=== PATIENT | female | born 1940 | race Caucasian/White ===

== ENCOUNTER 2025-10-14 07:02 | Inpatient (IN) | payer BC, OTHER ==
[~2025-10-14] VITALS: Ht 167.6 cm; Wt 64.7 kg
--- NOTE | 2025-10-14 07:13 | ED.PDOC ---
HPI Comments This is a 85 year old female KRISTA presenting to the ED with chief complaint of near-syncope. EMS reports patient had gotten up out of bed this morning and began to experience a burning pain in her chest along with associated SOB and lightheadedness. EMS relays patient was witnessed by family to have a near- syncopal episode, lowering herself to the ground due to feeling weak. EMS states patient feels much better at this time while en route to the ED. Patient denies any syncope, LOC, dizziness, headache, N/V, or fever. Chief Complaint: Chest Pain Time Seen by MD: 07:11 Primary Care Provider: JOSE MIGUEL Limon Notes: Nurses Notes, Medications, Allergies Allergies: Coded Allergies: NO KNOWN ALLERGIES (Unverified , 04/05/15) Information Source: Patient, Emergency Med Personnel Mode of Arrival: EMS Severity: Moderate Timing: Hours Duration: Since onset Prehospital treatment: None Location: Substernal Radiation: No Radiation Quality: Burning Onset: At Rest Cardiac Risk Factors: Diabetes PE Risk Factors: None History of: None Associated Signs and Symptoms: SOB Past Medical History PAST MEDICAL HISTORY: DM Surgical History: Cholecystectomy, Hysterectomy CUTTER TENDER History: No Pertinent CUTTER TENDER History Family History Family History: Unobtainable Social History Smoker: Non-Smoker Alcohol: Denies ETOH Use Drugs: Denies Drug Use Lives In: Home Constitutional: denies: chills, diaphoresis, fatigue, fever, malaise, sweats, weakness, others EENTM: denies: blurred vision, double vision, ear bleeding, ear discharge, ear drainage, ear pain, ear ringing, eye pain, eye redness, hearing loss, mouth pain, mouth swelling, nasal discharge, nose bleeding, nose congestion, nose pain, photophobia, tearing, throat pain, throat swelling, voice changes, others Respiratory: reports: shortness of breath; denies: cough, hemoptysis, orthopnea, SOB at rest, SOB with excertion, stridor, wheezing, others Cardiovascular: reports: chest pain, lightheadedness; denies: dizzy spells, diaphoresis, Dyspnea on exertion, edema, irregular heart beat, left arm pain, palpitations, PND, syncope, others Gastrointestinal: denies: abdomen distended, abdominal pain, blood streaked bowels, constipated, diarrhea, dysphagia, difficulty swallowing, hematemesis, melena, nausea, poor appetite, poor fluid intake, rectal bleeding, rectal pain, vomiting, others Genitourinary: denies: abnormal vagina bleeding, burning, dyspareunia, dysuria, flank pain, frequency, hematuria, incontinence, pain, , vagina discharge, urgency, others Neurological: denies: dizziness, fainting, headache, left sided numbness, left sided weakness, numbness, paresthesia, pre-existing deficit, right sided numbness, right sided weakness, seizure, speech problems, tingling, tremors, weakness, others Musculoskeletal: denies: back pain, gout, joint pain, joint swelling, muscle pain, muscle stiffness, neck pain, others Integumetry: denies: bruises, change in color, change in hair/nails, dryness, laceration, lesions, lumps, rash, wounds, others Allergic/Immunocompromised: denies: Difficulty Healing, Frequent Infections, Hives, Itching, others Hematologic/Lymphatic: denies: anemia, blood clots, easy bleeding, easy bruising, swollen glands, others Endocrine: denies: excessive hunger, excessive sweating, excessive thirst, excessive urination, flushing, intolerance to cold, intolerance to heat, un explained weight gain, unexplained weight loss, others Psychiatric: denies: anxiety, bipolar disorder, depression, hopeless, panic disorder, schizophrenia, sleepless, suicidal, others All Other Systems: Reviewed and Negative Physical Exam General Appearance: Moderate Distress, Normal HEENT: Normal ENT Inspection, Pharynx Normal, TMs Normal Neck: Full Range of Motion, Non-Tender, Normal, Normal Inspection Respiratory: Chest Non-Tender, Lungs Clear, No Accessory Muscle Use, No Respiratory Distress, Normal Breath Sounds Cardiovascular: No Edema, No JVD, No Murmur, No Gallop, Normal Peripheral Pulse s, Regular Rate/Rhythm Breast Exam: Deferred Gastrointestinal: No Organomegaly, Non Tender, No Pulsatile Mass, Normal Bowel Sounds, Soft Genitalia: Deferred Pelvic: Deferred Rectal: Deferred Extremities: No calf tenderness, Normal capillary refill, Normal inspection, Normal range of motion, Non-tender, No pedal edema Musculoskeletal : Apperance: Normal Neurologic: Alert, network design architect II-XII nml as Tested, No Motor Deficits, Normal Affect, Normal Mood, No Sensory Deficits Cerebellar Function: NOT DONE Reflexes: NOT DONE Skin: Dry, Normal Color, Warm Peripheral Pulses: 3+ Radial (R), 3+ Radial (L) Lymphatic: No Adenopathy Was a procedure done? Was a procedure done?: No CP Differential Dx Differential Diagnosis: A-fib, A-Flutter, Angina, Anxiety / Panic Attack, Atrial Dysrhythmia, Electrolyte Disorder X-Ray, Labs, Meds, VS Vital Signs Date Time Temp Pulse Resp B/P (MAP) Pulse Ox O2 Delivery O2 Flow Rate FiO2 10/14/25 09:37 98.4 87 16 113/68 (83) 95 98.4 10/14/25 09:37 16 16 95 Room Air 10/14/25 07:09 76 10/14/25 07:09 98.3 75 16 125/65 96 98.3 Lab Test 10/14/25 08:28 10/14/25 07:25 Range/Units Troponin I High Sensitivity < 3 L < 3 L </=34 ng/L White Blood Count 13.6 H 4.4-10.8 10^3/uL Red Blood Count 4.44 4.0-5.20 10^6/uL Hemoglobin 13.9 12.2-16.2 g/dL Hematocrit 41.2 36.0-46.0 % Mean Corpuscular Volume 92.8 80.0-100.0 fL Mean Corpuscular Hemoglobin 31.3 28.0-32.0 pg Mean Corpuscular Hemoglobin Concent 33.7 32.0-36.0 g/dL Red Cell Distribution Width 13.2 11.8-14.3 % Platelet Count 265 140-450 10^3/uL Mean Platelet Volume 7.7 6.9-10.8 fL Neutrophils (%) (Auto) 80.3 H 37.0-80.0 % Lymphocytes (%) (Auto) 9.1 L 10.0-50.0 % Monocytes (%) (Auto) 8.8 0.0-12.0 % Eosinophils (%) (Auto) 1.4 0.0-7.0 % Basophils (%) (Auto) 0.4 0.0-2.0 % Neutrophils # (Auto) 10.9 H 1.6-8.6 10 ^3/uL Lymphocytes # (Auto) 1.2 0.4-5.4 10 ^3/uL Monocytes # (Auto) 1.2 0-1.3 10 ^3/uL Eosinophils # (Auto) 0.2 0-0.8 10 ^3/uL Basophils # (Auto) 0.1 0-0.2 10 ^3/uL Nucleated Red Blood Cells 0.0 % Sodium Level 144 136-145 mmol/L Potassium Level 3.9 3.5-5.1 mmol/L Chloride Level 105 98-107 mmol/L Carbon Dioxide Level 28 20-31 mmol/L Anion Gap 11 5-15 Blood Urea Nitrogen 13 9-23 mg/dL Creatinine 0.98 0.550-1.02 mg/dL Glomerular Filtration Rate Calc 57 >90 mL/min BUN/Creatinine Ratio 13.3 10.0-20.0 Serum Glucose 130 H 74-106 mg/dL Calcium Level 9.8 8.7-10.4 mg/dL Total Bilirubin 0.4 0.2-1.0 mg/dL Aspartate Amino Transferase (AST) 22 13-40 U/L Alanine Aminotransferase (ALT) 12 7-40 U/L Alkaline Phosphatase 81 46-116 U/L Total Protein 7.1 5.7-8.2 g/dL Albumin 4.6 3.2-4.8 g/dL Patient alert. States that she is feeling much better. Possible near-syncope. Vitals stable. Answering questions. Moving all extremities. Cardiac workup. Neurology workup. EKG reviewed does not show any acute changes. Continue monitoring. Time of 1ST Reevaluation: 08:10 Reevaluation 1ST: Improved Patient Education/Counseling: Diagnosis, Treatment Family Education/Counseling: No Family Present SEPSIS Sepsis Screen Physician Orders Chest Portable (10/14/25 07:07) Urinalysis (10/14/25 07:07) Electrocardigram (10/14/25 07:07) Troponin-I Hs (10/14/25 10:07) Electrocardigram (10/14/25 08:07) Electrocardigram (10/14/25 10:07) Vital Signs Date Time Temp Pulse Resp B/P (MAP) Pulse Ox O2 Delivery O2 Flow Rate FiO2 10/14/25 09:37 98.4 87 16 113/68 (83) 95 98.4 10/14/25 09:37 16 16 95 Room Air 10/14/25 07:09 76 10/14/25 07:09 98.3 75 16 125/65 96 98.3 Laboratory Tests Test 10/14/25 07:25 White Blood Count 13.6 10^3/uL (4.4-10.8) H Departure 1 Departure Time of Disposition: 07:28 Impression: Primary Impression: Syncope Qualified Codes: R55 - Syncope and collapse Disposition: ADMITTED INPATIENT Admit to: Med Surg Condition: Guarded Critical Care Note Critical Care Time?: No Stability Stability form required: No Heart Score Heart Score: Heart Score Response (Comments) Value History Highly Suspicious 2 EKG Normal 0 Age >65 2 Risk Factors >3 or Hx ASHD 2 Troponin Normal limit 0 Total 6 I personally scribed for MANUELA BISWAS MD ([email or web address]) on 10/14/25 at 07:13. Electronically submitted by Joseph Arellano ([email or web address]). MANUELA BISWAS MD Oct 14, 2025 07:13
[2025-10-14 07:34] LABS: Hematocrit 41.2 % (36.0-46.0); Hemoglobin 13.9 g/dL (12.2-16.2); Mean Corpuscular Hemoglobin 31.3 pg (28.0-32.0); Mean Corpuscular Volume 92.8 fL (80.0-100.0); Nucleated Red Blood Cells % 0.0 %
[2025-10-14 07:51] LABS: Alanine Aminotransferase 12 U/L (7-40); Albumin 4.6 g/dL (3.2-4.8); Alkaline Phosphatase 81 U/L (46-116); Anion Gap 11 (5-15); BUN/Creatinine Ratio 13.3 (10.0-20.0); Blood Urea Nitrogen 13 mg/dL (9-23); Calcium 9.8 mg/dL (8.7-10.4); Carbon Dioxide 28 mmol/L (20-31); Chloride 105 mmol/L (98-107); Potassium 3.9 mmol/L (3.5-5.1); Sodium 144 mmol/L (136-145); Total Protein 7.1 g/dL (5.7-8.2)
[2025-10-14 07:52] LABS: Bilirubin, Total 0.4 mg/dL (0.2-1.0)
[2025-10-14 07:55] LABS: Glucose 130 mg/dL (74-106)
--- NOTE | 2025-10-14 08:58 | DVH ---
XY CHEST PORTABLE, HISTORY: chest pain COMPARISON: None None TECHNICAL DATA: 1 view of the chest was obtained. FINDINGS: Lines and tubes: None Cardiomediastinal silhouette: normal Pulmonary vasculature: Prominent Lung expansion: normal Lung airspace: normal Lung interstitium: normal Pleura: normal Pneumothorax: no Bones: Unremarkable Other: no IMPRESSION: Pulmonary vascular congestion.
--- NOTE | 2025-10-14 10:57 | DVH ---
CT HEAD WITHOUT CONTRAST INDICATION: syncope COMPARISON: None TECHNIQUE: CT of the head without intravenous contrast. RADIATION DOSE: CTDIvol: 51.97 mGy, DLP: 1024.32 mGy*cm FINDINGS: There is no evidence of acute intracranial hemorrhage, extra-axial collection, mass effect, midline shift, herniation or hydrocephalus. The ventricles, sulci and cisterns are age appropriate. The doshi-white differentiation is intact. The visualized paranasal sinuses and mastoid air cells are clear. The surrounding soft tissues and osseous structures are unremarkable. IMPRESSION: 1. No evidence of acute intracranial hemorrhage, mass effect or hydrocephalus.
[2025-10-14] MEDS ORDERED: NITROGLYCERIN 0.4 MG SL TAB SL PRN ×3 (11:15→21:30)
[2025-10-14] MEDS ORDERED: ACETAMINOPHEN 325 MG TAB PO PRN (11:15)
[2025-10-14] MEDS ORDERED: ONDANSETRON HCL 4 MG/2 ML VIAL IV PRN ×2 (11:15→21:30)
--- NOTE | 2025-10-14 11:16 | DVHHP2 ---
History of Present Illness Reason for Visit: chest pain History of Present Illness 85-year-old female with past medical history significant for depression, hypertension, diabetes mellitus, hyperlipidemia, and congestive heart failure, status post cholecystectomy and hysterectomy, who presents with acute chest pain, weakness, and near-syncope. Patient states that early this morning around 5:00 AM, she suddenly became pale, developed pressure-like chest pain, and felt as though something was stuck in her throat. She reports becoming profoundly weak, to the point that she had to lower herself to the floor. The chest pain radiated from the chest to the back, described as pressure-like, with no relieving or aggravating factors. She also reports shortness of breath and generalized weakness. Patient is currently wheelchair-bound and presented with her daughter at bedside. She denies fever. In the ED, labs showed WBC 13.6, troponin negative x2, and chest X-ray demonstrating pulmonary vascular congestion. EKG showed no ST-elevation. CT brain was unremarkable. Given her history of heart failure and current symptoms, she will be admitted for further evaluation and management. Plans include CT soft tissue neck, CT chest to rule out pulmonary embolism, echocardiogram, and cardiology consultation. will admit to tele Past Medical History See HPI above Past Surgical History See HPI above Family History Reviewed, non-contributory to the management of this case. Past Social History The patient lives at home, denies smoking, alcohol or illicit drugs abuse. Review of Systems Constitutional: No: Fever, Chills, Sweats, Weakness, Malaise, Other Eyes: No: Pain, Vision change, Conjunctivae inflammation, Eyelid inflammation, Other, Redness ENT: No: Ear pain, Ear discharge, Nose pain, Nose discharge, Nose congestion, Mouth pain, Mouth swelling, Throat pain, Throat swelling, Other Respiratory: No: Cough, Dry, Shortness of breath, SOB with excertion, Wheezing, Hemoptysis, Pleuritic Pain, Sputum, Wheezing, Other Cardiovascular: Chest Pain; No: Palpitations, Orthopnea, Paroxysmal Noc. Dyspnea, Edema, Lt Headedness, Other Gastrointestinal: No: Nausea, Vomiting, Abdominal Pain, Diarrhea, Constipation, Melena, Hematochezia, Other Genitourinary: No Dysuria, No Frequency, No Incontinence, No Hematuria, No Retention, No Other Musculoskeletal: No: other, neck pain, shoulder pain, arm pain, back pain, hand pain, leg pain, foot pain Skin: No: Rash, Lesions, Jaundice, Bruising, Other Neurological: No: Weakness, Numbness, Incoordination, Change in speech, Confusion, Seizures, Other Allergies: Coded Allergies: NO KNOWN ALLERGIES (Unverified , 04/05/15) Exam Vital Signs Vital Signs Date Time Temp Pulse Resp B/P (MAP) Pulse Ox O2 Delivery O2 Flow Rate FiO2 10/14/25 09:37 98.4 87 16 113/68 (83) 95 98.4 10/14/25 09:37 Room Air General Appearance: Alert, Oriented X3, Cooperative, No acute distress HEENT: Atraumatic, PERRLA, EOMI, Mucous membr. moist/pink Respiratory: Clear to auscultation, Normal air movement Cardiovascular: Regular rate, Normal S1, Normal S2, No murmurs Abdominal: Normal bowel sounds, Soft, No tenderness, No hepatospenomegaly, No masses Extremities: No clubbing, No cyanosis, No edema, Normal pulses, No tenderness/swelling Skin: No rashes, No breakdown, No significant lesion Neuro: Normal gait, Normal speech, Strength at 5/5 X4 ext, Normal tone, Sensation intact, Cranial nerves 3-12 NL Psych/Mental Status: Mental status NL, Mood NL Labs/Xrays CT scan of the brain unremarkable Chest x-ray shows pulmonary vascular congestion I reviewed labs, imaging CT scan abdomen pelvis, EKG and all diagnostic studies on this patient from ED records and the medical chart Labs Test 10/14/25 10:35 10/14/25 07:25 Range/Units Troponin I High Sensitivity < 3 L </=34 ng/L White Blood Count 13.6 H 4.4-10.8 10^3/uL Red Blood Count 4.44 4.0-5.20 10^6/uL Hemoglobin 13.9 12.2-16.2 g/dL Hematocrit 41.2 36.0-46.0 % Mean Corpuscular Volume 92.8 80.0-100.0 fL Mean Corpuscular Hemoglobin 31.3 28.0-32.0 pg Mean Corpuscular Hemoglobin Concent 33.7 32.0-36.0 g/dL Red Cell Distribution Width 13.2 11.8-14.3 % Platelet Count 265 140-450 10^3/uL Mean Platelet Volume 7.7 6.9-10.8 fL Neutrophils (%) (Auto) 80.3 H 37.0-80.0 % Lymphocytes (%) (Auto) 9.1 L 10.0-50.0 % Monocytes (%) (Auto) 8.8 0.0-12.0 % Eosinophils (%) (Auto) 1.4 0.0-7.0 % Basophils (%) (Auto) 0.4 0.0-2.0 % Neutrophils # (Auto) 10.9 H 1.6-8.6 10 ^3/uL Lymphocytes # (Auto) 1.2 0.4-5.4 10 ^3/uL Monocytes # (Auto) 1.2 0-1.3 10 ^3/uL Eosinophils # (Auto) 0.2 0-0.8 10 ^3/uL Basophils # (Auto) 0.1 0-0.2 10 ^3/uL Nucleated Red Blood Cells 0.0 % Sodium Level 144 136-145 mmol/L Potassium Level 3.9 3.5-5.1 mmol/L Chloride Level 105 98-107 mmol/L Carbon Dioxide Level 28 20-31 mmol/L Anion Gap 11 5-15 Blood Urea Nitrogen 13 9-23 mg/dL Creatinine 0.98 0.550-1.02 mg/dL Glomerular Filtration Rate Calc 57 >90 mL/min BUN/Creatinine Ratio 13.3 10.0-20.0 Serum Glucose 130 H 74-106 mg/dL Calcium Level 9.8 8.7-10.4 mg/dL Total Bilirubin 0.4 0.2-1.0 mg/dL Aspartate Amino Transferase (AST) 22 13-40 U/L Alanine Aminotransferase (ALT) 12 7-40 U/L Alkaline Phosphatase 81 46-116 U/L Total Protein 7.1 5.7-8.2 g/dL Albumin 4.6 3.2-4.8 g/dL SEPSIS Sepsis Screen Date sepsis recognized/suspect: Oct 14, 2025 Time Sepsis recognized/suspect: 709 Recent Procedure: No On Antibiotic Therapy: No Respiratory Rate >20: No Heart Rate >90: No Temp<36 C (96.8 F) or >38.3 C: No SBP <90 or MAP <65 mmHG: No New Acute Mental Status Change: No Is the patient on CPAP, BIPAP,: No Physician Orders Chest Portable (10/14/25 07:07) Urinalysis (10/14/25 07:07) Electrocardigram (10/14/25 07:07) Electrocardigram (10/14/25 08:07) Electrocardigram (10/14/25 10:07) Head Without Contrast (10/14/25 10:04) Ct Angio Chest Contrast (10/14/25 11:07) Neck Without Contrast (10/14/25 11:07) * Swallow Request (10/14/25 11:07) * Cardiology Consult (10/14/25 11:07) Admit (10/14/25 11:07) Code Status (10/14/25 11:07) Vital Signs .PER UNIT PROTOCOL (10/14/25 11:07) Mobile Ui/Ux Designer (10/14/25 11:07) May Elevate Hob ____ Degrees (10/14/25 11:07) Cardiac Diet-2gna,Lofat,Lochol (10/14/25 Lunch) Aspirin Chewable Tablet (10/15/25 10:00) Lipitor 40mg Hs Hi-Intensity (10/14/25 22:00) Acetaminophen Tablet (Tylenol Tablet) (10/14/25 11:15) Docusate Sodium Capsule (Colace Capsule) (10/15/25 10:00) Oxygen By Nasal Cannula (10/14/25 11:07) Complete Blood Count (10/15/25 04:00) Comprehensive Metabolic Panel (10/15/25 04:00) Echo 2d Mode Cardiac Dop (10/14/25 11:07) Nitroglycerin Sublingual (Ntrostat Subli (10/14/25 11:15) Ondansetron Hcl (Zofran) (10/14/25 11:15) Electrocardigram (10/14/25 11:07) Enoxaparin Sodium (Lovenox) (10/15/25 10:00) Troponin-I Hs (10/14/25 11:07) Cardiac Rehabilitation - Outpa (10/14/25 ) Nitroglycerin Sublingual (Ntrostat Subli (10/14/25 11:15) Stat Ekg For Chest Pain (10/14/25 11:07) Notify Md Of Changes From Base (10/14/25 11:07) Vice President Supply Chain For 24 Hours (10/14/25 11:07) Emergency Dysrhythmia Protocol (10/14/25 11:07) Rhythm Strips Once Every Shift (10/14/25 11:07) Oxygen By Nasal Cannula (10/14/25 11:07) Troponin-I Hs (10/14/25 12:07) Troponin-I Hs (10/14/25 14:07) * Cardiology Consult (10/14/25 11:07) Furosemide Injection (Lasix Injection) (10/14/25 18:00) Vital Signs Date Time Temp Pulse Resp B/P (MAP) Pulse Ox O2 Delivery O2 Flow Rate FiO2 10/14/25 09:37 98.4 87 16 113/68 (83) 95 98.4 10/14/25 09:37 16 16 95 Room Air 10/14/25 07:09 76 10/14/25 07:09 98.3 75 16 125/65 96 98.3 Laboratory Tests Test 10/14/25 07:25 White Blood Count 13.6 10^3/uL (4.4-10.8) H Assessment/Plan Assessment/Plan 85-year-old female with known congestive heart failure, presenting with acute chest pain, weakness, and shortness of breath, admitted for evaluation of possib le heart failure exacerbation and cardiopulmonary pathology. Acute chest pain, rule out ACS / PE Troponin negative [address]-elevation CT chest ordered to rule out PE Cardiology consult Continuous telemetry Acute on chronic congestive heart failure exacerbation Chest X-ray with pulmonary vascular congestion History of CHF Echocardiogram ordered Monitor volume status Diuresis as indicated per cardiology acute Shortness of breath Likely secondary to CHF exacerbation Oxygen as needed Monitor respiratory status Near syncope / generalized weakness Episode of collapse to floor without loss of consciousness Monitor orthostatics Telemetry monitoring acute Leukocytosis Likely stress-related WBC 13.6 Trend CBC acute Globus sensation / throat discomfort CT soft tissue neck ordered Evaluate for structural cause monitor for trouble swallowing chronic problems Diabetes mellitus ISS Hypertension Monitor BP Hyperlipidemia Continue statin therapy Depression Continue home medications Status post cholecystectomy Status post hysterectomy FEN / PPx Fluids: hl given CHF history Electrolytes: Monitor BMP Nutrition: Cardiac / diabetic diet DVT Prophylaxis: SCDs GI Prophylaxis: no gi ppx since no hx gerds Disposition Admit to telemetry for cardiac monitoring, cardiology evaluation, echocardiogram, and CT imaging. Manage suspected acute CHF exacerbation, monitor chest pain, and evaluate for PE Plan discussed with: Patient My Orders Orders - APODACA,PARMINDER M DNP Procedure Category Date Status Time Ct Angio Chest CT 10/14/25 Transmitted Contrast 11:[address] 10/14/25 Transmitted 11:07 * Swallow Request ST 10/14/25 Transmitted 11:07 * Cardiology Consult CONS 10/14/25 Transmitted 11:07 Admit ADMIT 10/14/25 Transmitted 11:07 Code Status CODE 10/14/25 Transmitted 11:07 Vital Signs STEPHENIE 10/14/25 Transmitted 11:07 Mobile Ui/Ux Designer BANNER 10/14/25 Transmitted 11:07 May Elevate Hob ____ STEPHENIE 10/14/25 Transmitted Degrees 11:07 Cardiac DIET 10/14/25 Transmitted Diet-2gna,Lofat,Lochol Lunch Aspirin Chewable PHA 10/15/25 Transmitted Tablet 10:00 Lipitor 40mg Hs PHA 10/14/25 Transmitted Hi-Intensity 22:00 Acetaminophen Tablet PHA 10/14/25 Transmitted (Tylenol Tablet) 11:15 Docusate Sodium PHA 10/15/25 Transmitted Capsule (Colace 10:00 Oxygen By Nasal RT 10/14/25 Transmitted Cannula 11:07 Complete Blood Count LAB 10/15/25 Verified 04:00 Comprehensive LAB 10/15/25 Verified Metabolic Panel 04:00 Echo 2d Mode Cardiac US 10/14/25 Transmitted DOP 11:07 Nitroglycerin PHA 10/14/25 Transmitted Sublingual (Ntrostat 11:15 Ondansetron Hcl PHA 10/14/25 Transmitted (Zofran) 11:15 Electrocardigram EKG 10/14/25 Transmitted 11:07 Enoxaparin Sodium PHA 10/15/25 Transmitted (Lovenox) 10:00 Troponin-I Hs LAB 10/14/25 Transmitted 11:07 Cardiac STEPHENIE 10/14/25 Transmitted Rehabilitation - Outpa Nitroglycerin PHA 10/14/25 Transmitted Sublingual (Ntrostat 11:15 Stat Ekg For Chest BANNER 10/14/25 Transmitted Pain 11:07 Notify Of Changes BANNER 10/14/25 Transmitted From Base 11:07 Vice President Supply Chain For BANNER 10/14/25 Transmitted 24 Hours 11:07 Emergency Dysrhythmia BANNER 10/14/25 Transmitted Protocol 11:07 Rhythm Strips Once BANNER 10/14/25 Transmitted Every Shift 11:07 Oxygen By Nasal RT 10/14/25 Transmitted Cannula 11:07 Troponin-I Hs LAB 10/14/25 Transmitted 12:07 Troponin-I Hs LAB 10/14/25 Transmitted 14:07 * Cardiology Consult CONS 10/14/25 Transmitted 11:07 Furosemide Injection PHA 10/14/25 Transmitted (Lasix Injection) 18:00 Date of Service: Oct 14, 2025 Billing Provider: PARMINDER APODACA DNP Common Visit Codes: 08923-[id number] INP/OBS CARE (HIGH) PARMINDER APODACA DNP Oct 14, 2025 11:16
[2025-10-14 12:18] VITALS: RESP 18
[2025-10-14] MEDS: FUROSEMIDE 20 MG/2 ML VIAL IV SCH (12:35)
[2025-10-14] MEDS: FUROSEMIDE 20 MG/2 ML VIAL ONE ×2 (12:35→18:25)
[2025-10-14] MEDS: IOHEXOL 350 MG/ML 100ML IJ ONE (12:39)
--- NOTE | 2025-10-14 13:29 | DVH ---
CTA Chest with intravenous contrast INDICATION: eval for pulmonary embolism and aaa COMPARISON: XY CHEST PORTABLE on DOS: 10/14/25 TECHNIQUE: Multidetector spiral CTA of the chest was performed of the chest with intravenous contrast. PULMONARY ANGIOGRAPHY PROTOCOL was utilized using a bolus- tracking technique centered on the main pulmonary artery. Axial, coronal and sagittal multiplanar and MIP reformats were performed. Radiation Dose : 1. Chest: CTDI volume is 23.4 mGy. Dose-length product is 1433.84 mGy*cm The dose indicators for CT are the volume Computed Tomography (CT) Dose Index (CTDIvol) and the Dose Length Product (DLP), and are measured in units of mGy and mGy-cm, respectively. These indicators are not patient dose, but values generated from the CT scanner acquisition factors. The report includes radiation exposure data for exposures received during this examination. FINDINGS: Pulmonary artery: No pulmonary embolism Lower neck: Normal thyroid. Lungs: Multifocal ground-glass densities throughout both lungs may reflect multifocal pneumonia. Heart/Vascular Structures: Normal heart size. No pericardial effusion. Lymph Nodes: No adenopathy Pleura: No pleural effusion or significant pneumothorax. Musculoskeletal: No acute osseous abnormality. Soft tissues: Normal. Upper abdomen: Limited portions of the upper abdomen are unremarkable. IMPRESSION: 1. No pulmonary embolism. 2. Multifocal ground-glass densities throughout both lungs may reflect multifocal pneumonia.
[2025-10-14 13:52] LABS: Urine Protein, UAD Negative (Negative)
[2025-10-14 13:53] VITALS: PULSE 76; RESP 18; O2SAT 91
--- NOTE | 2025-10-14 14:47 | DVH ---
EXAM: CT NECK WITHOUT CONTRAST INDICATION: eval for acute dsyphaghia Exam Date: 10/14/2025 12:38 PM COMPARISON: None TECHNIQUE: CT of the neck without intravenous contrast. RADIATION DOSE: CTDIvol: 23 mGy, DLP: 1430 mGy*cm CONTRAST: None given FINDINGS: There is no evidence of cervical mass lesion, pathologically enlarged lymph nodes or fluid collection. The fat planes of the neck appear intact. The airway and larynx are unremarkable. The parotid, submandibular and thyroid glands are unremarkable. The vascular structures of the neck appear patent. The visualized lung apices are clear. The limited visualized portions of the brain are unremarkable. The osseous structures are unremarkable. IMPRESSION: 1. No evidence of cervical mass lesion, pathologically enlarged lymph nodes or fluid collection.
--- NOTE | 2025-10-14 17:56 | DVHSR ---
APPROVED REPORT EXAM: Two-dimensional and M-mode echocardiogram with Doppler and color Doppler. Blood Pressure: 113/68 mmHg INDICATION Chest Pain RISK FACTORS Height: 5' 6", Weight: 145 DIMENSIONS LVDd 4.3 (3.8-5.7cm) LA (2D) 3.4 (1.9-4.0cm) Aortic Root 3.0 (2.0-3.7cm) LVDs 3.1 (2.5-4.0cm) LA (MM) (1.9-4.0cm) Aortic Cusp Exc 1.5 (1.5-2.0cm) EF (%) 55.0 (55-70%) Rt. Atrium 3.5 (1.9-4.0cm) Asc. Aorta cm IVSd 1.0 (0.7-1.1cm) RV (D) (1.8-2.4cm) PWd 1.0 (0.7-1.1cm) Mitral Valve Mitral Mitral Stenosis E wave 0.70m/s MV Mean GR. mmHg A wave 1.00m/s MV Peak GR. mmHg E/A ratio 0.7 2D MVA cm2 Aortic Valve Aortic Valve Aortic Stenosis V1 0.70m/s AO Mean GR. 4mmHg V2 1.40m/s AO Peak GR. 9mmHg LVOT Diameter 2.0 (1.8-2.4cm) Doppler SILVER 1.57cm2 Pulmonic Valve V2 0.70m/s Tricuspid Valve TR Velocity 2.30m/s RVSP 30mmHg Conclusion LV EF IS 55% AND IS NORMAL MODERATELY DILATED RV AND RA AORTIC SCLEROSIS NORMAL MV,TV AND PV NO EFFUSION
--- NOTE | 2025-10-14 19:56 | DVHINCON2 ---
Date of service: Oct 14, 2025 Referring Physician Leonel Reason for Consultation Chest pain and CHF History of Present Illness This is an 85-year-old female with a past medical history of depression, hypertension, diabetes mellitus, hyperlipidemia, and congestive heart failure, status post cholecystectomy and hysterectomy, who presents with acute chest pain, weakness, and near-syncope. Patient states that early this morning around 5:00 AM, she suddenly became pale, developed pressure-like chest pain, and felt as though something was stuck in her throat. She reports becoming profoundly weak, to the point that she had to lower herself to the floor. The chest pain radiated from the chest to the back, described as pressure-like, with no relieving or aggravating factors. She also reports shortness of breath and generalized weakness. Patient is currently wheelchair-bound and presented with her daughter at bedside. She denies fever. WBC 13.6, troponin negative x2. Chest x-ray demonstrated pulmonary vascular congestion. EKG showed no ST-elevation. CT brain was unremarkable. Patient was admitted to the hospital. I am asked to consult on this patient. Allergies: Coded Allergies: NO KNOWN ALLERGIES (Unverified , 04/05/15) Current Medications Current Medications Medications (Trade) Dose Ordered Sig/Suzan Route PRN Reason Start Time Stop Time Status Last Admin Aspirin 81 mg DAILY PO 10/15/25 10:00 Atorvastatin Calcium (Lipitor) 40 mg HS PO 10/14/25 22:00 Acetaminophen (Tylenol Tablet) 325 mg Q4HP PRN PO FOR HEADACHE 10/14/25 11:15 Docusate Sodium (Colace Capsule) 100 mg DAILY PO 10/15/25 10:00 Nitroglycerin (Ntrostat Sublingual) 0.4 mg Q5MINP PRN SL FOR CHEST PAIN 10/14/25 11:15 Ondansetron HCl (Zofran) 4 mg Q4HP PRN IV NAUSEA / VOMITING 10/14/25 11:15 Enoxaparin Sodium (Lovenox) 40 mg DAILY SC 10/15/25 10:00 Nitroglycerin (Ntrostat Sublingual) 0.4 mg Q5MINP PRN SL FOR CHEST PAIN 10/14/25 11:15 UNV Furosemide (Lasix Injection) 20 mg BIDD IV 10/14/25 11:51 10/14/25 12:35 Review of Systems Constitutional: denies: chills, diaphoresis, fatigue, fever, malaise, sweats, weakness, others EENTM: denies: blurred vision, double vision, ear bleeding, ear discharge, ear drainage, ear pain, ear ringing, eye pain, eye redness, hearing loss, mouth pain, mouth swelling, nasal discharge, nose bleeding, nose congestion, nose pain, photophobia, tearing, throat pain, throat swelling, voice changes, others Respiratory: reports: shortness of breath; denies: cough, hemoptysis, orthopnea, SOB at rest, SOB with excertion, stridor, wheezing, others Cardiovascular: reports: chest pain, lightheadedness; denies: dizzy spells, diaphoresis, Dyspnea on exertion, edema, irregular heart beat, left arm pain, palpitations, PND, syncope, others Gastrointestinal: denies: abdomen distended, abdominal pain, blood streaked bowels, constipated, diarrhea, dysphagia, difficulty swallowing, hematemesis, melena, nausea, poor appetite, poor fluid intake, rectal bleeding, rectal pain, vomiting, others Genitourinary: denies: abnormal vagina bleeding, burning, dyspareunia, dysuria, flank pain, frequency, hematuria, incontinence, pain, , vagina discharge, urgency, others Neurological: denies: dizziness, fainting, headache, left sided numbness, left sided weakness, numbness, paresthesia, pre-existing deficit, right sided numbness, right sided weakness, seizure, speech problems, tingling, tremors, weakness, others Musculoskeletal: denies: back pain, gout, joint pain, joint swelling, muscle pain, muscle stiffness, neck pain, others Integumetry: denies: bruises, change in color, change in hair/nails, dryness, laceration, lesions, lumps, rash, wounds, others Allergic/Immunocompromised: denies: Difficulty Healing, Frequent Infections, Hives, Itching, others Hematologic/Lymphatic: denies: anemia, blood clots, easy bleeding, easy bru ising, swollen glands, others Endocrine: denies: excessive hunger, excessive sweating, excessive thirst, e xcessive urination, flushing, intolerance to cold, intolerance to heat, unexplained weight gain, unexplained weight loss, others Psychiatric: denies: anxiety, bipolar disorder, depression, hopeless, panic disorder, schizophrenia, sleepless, suicidal, others All Other Systems: Reviewed and Negative Vital Signs Vital Signs Date Time Temp Pulse Resp B/P (MAP) Pulse Ox O2 Delivery O2 Flow Rate FiO2 10/14/25 16:00 97.9 69 18 94/49 (64) 93 97.9 10/14/25 13:53 Room Air* 0 21 Physical Exam GENERAL: Alert and oriented x 3. No acute distress. EYES: PERRL, EOMI. Anicteric. HENT: Moist mucous membranes. LUNGS: Clear to auscultation bilaterally. CARDIOVASCULAR: Regular rate and rhythm. ABDOMEN: Soft, nontender and nondistended. EXTREMITIES: No edema. NEUROLOGIC: No focal neurological deficits. SKIN: Warm, dry. Labs/Diagnostic Data Labs Test 10/14/25 11:50 10/14/25 11:37 10/14/25 07:25 Range/Units Urine Color Light-yellow Yellow Urine Clarity Clear Clear Urine pH 5.0 5.0-9.0 Urine Specific [place] 1.016 1.001-1.035 Urine Protein Negative Negative Urine Ketones Negative Negative Urine Blood Negative Negative /uL Urine Nitrite Negative Negative Urine Bilirubin Negative Negative Urine Urobilinogen Normal Negative mg/dL Urine Leukocyte Esterase Trace Negative /uL Urine RBC 1 0 - 4 /hpf Urine Microscopic WBC 1 0-5 /HPF Urine Squamous Epithelial Cells Few <5 /hpf Urine Bacteria Few H None Seen /hpf Urine Glucose Normal Normal mg/dL Troponin I High Sensitivity < 3 L </=34 ng/L White Blood Count 13.6 H 4.4-10.8 10^3/uL Red Blood Count 4.44 4.0-5.20 10^6/uL Hemoglobin 13.9 12.2-16.2 g/dL Hematocrit 41.2 36.0-46.0 % Mean Corpuscular Volume 92.8 80.0-100.0 fL Mean Corpuscular Hemoglobin 31.3 28.0-32.0 pg Mean Corpuscular Hemoglobin Concent 33.7 32.0-36.0 g/dL Red Cell Distribution Width 13.2 11.8-14.3 % Platelet Count 265 140-450 10^3/uL Mean Platelet Volume 7.7 6.9-10.8 fL Neutrophils (%) (Auto) 80.3 H 37.0-80.0 % Lymphocytes (%) (Auto) 9.1 L 10.0-50.0 % Monocytes (%) (Auto) 8.8 0.0-12.0 % Eosinophils (%) (Auto) 1.4 0.0-7.0 % Basophils (%) (Auto) 0.4 0.0-2.0 % Neutrophils # (Auto) 10.9 H 1.6-8.6 10 ^3/uL Lymphocytes # (Auto) 1.2 0.4-5.4 10 ^3/uL Monocytes # (Auto) 1.2 0-1.3 10 ^3/uL Eosinophils # (Auto) 0.2 0-0.8 10 ^3/uL Basophils # (Auto) 0.1 0-0.2 10 ^3/uL Nucleated Red Blood Cells 0.0 % Sodium Level 144 136-145 mmol/L Potassium Level 3.9 3.5-5.1 mmol/L Chloride Level 105 98-107 mmol/L Carbon Dioxide Level 28 20-31 mmol/L Anion Gap 11 5-15 Blood Urea Nitrogen 13 9-23 mg/dL Creatinine 0.98 0.550-1.02 mg/dL Glomerular Filtration Rate Calc 57 >90 mL/min BUN/Creatinine Ratio 13.3 10.0-20.0 Serum Glucose 130 H 74-106 mg/dL Calcium Level 9.8 8.7-10.4 mg/dL Total Bilirubin 0.4 0.2-1.0 mg/dL Aspartate Amino Transferase (AST) 22 13-40 U/L Alanine Aminotransferase (ALT) 12 7-40 U/L Alkaline Phosphatase 81 46-116 U/L Total Protein 7.1 5.7-8.2 g/dL Albumin 4.6 3.2-4.8 g/dL Assessment Acute chest pain. Acute on chronic congestive heart failure exacerbation. Dyspnea. Near syncope. Generalized weakness. Acute Leukocytosis. Acute Globus sensation / throat discomfort. Diabetes mellitus. Hypertension. Hyperlipidemia. Depression. Status post cholecystectomy. Status post hysterectomy. Plan/Recommendation I agree with your ongoing assessment and care of plan. Telemetry reviewed. Echocardiogram. Aspirin, Lipitor. DVT prophylactics. Diuretics with Lasix. Additional plan as per the hospital course. A total of 45 minutes was spent reviewing the patient record, examining the patient, making a diagnostic and therapeutic plan, discussing this plan with medical personnel, following up on diagnostic studies and following the patient for clinical stability excluding any and all procedures. At least 50% of this time was spent in direct, [id number] contact. Plan discussed with: Patient CARA MENCHACA MD Oct 14, 2025 18:15
[2025-10-14 21:00] VITALS: PULSE 93
[2025-10-14 21:23] VITALS: BP 117/70; PULSE 87; RESP 16; TEMP 98.3; O2SAT 94
[2025-10-14] MEDS: ATORVASTATIN 20 MG TAB PO SCH (21:36)
[2025-10-14] MEDS ORDERED: LISI2.5T47 PO (21:45)
[2025-10-14] MEDS ORDERED: LEVO25CA3 PO (21:45)
[2025-10-14] MEDS ORDERED: SIMV20TA20 PO (21:45)
[2025-10-14] MEDS ORDERED: METF500S3 PO (21:45)
[2025-10-14] MEDS ORDERED: ATORVASTATIN 20 MG TAB PO SCH (22:00)
[2025-10-14] MEDS: ACETAMINOPHEN 325 MG TAB PO PRN (22:16)
[2025-10-15] VITALS (9 sets, daily range): BP systolic 122–141; BP diastolic 67–89; PULSE 38–88; RESP 16–17; TEMP 97.8–99; O2SAT 94–97
[2025-10-15] MEDS: FUROSEMIDE 20 MG/2 ML VIAL IV SCH (06:00)
[2025-10-15 06:52] LABS: Hematocrit 39.3 % (36.0-46.0); Hemoglobin 13.1 g/dL (12.2-16.2); Mean Corpuscular Hemoglobin 30.9 pg (28.0-32.0); Mean Corpuscular Volume 93.2 fL (80.0-100.0); Nucleated Red Blood Cells % 0.1 %
[2025-10-15 07:12] LABS: Alanine Aminotransferase 10 U/L (7-40); Albumin 4.3 g/dL (3.2-4.8); Alkaline Phosphatase 62 U/L (46-116); Anion Gap 9 (5-15); BUN/Creatinine Ratio 11.8 (10.0-20.0); Bilirubin, Total 0.5 mg/dL (0.2-1.0); Blood Urea Nitrogen 14 mg/dL (9-23); Calcium 9.6 mg/dL (8.7-10.4); Chloride 102 mmol/L (98-107); Potassium 4.1 mmol/L (3.5-5.1); Sodium 142 mmol/L (136-145); Total Protein 6.7 g/dL (5.7-8.2)
[2025-10-15 07:19] LABS: Carbon Dioxide 31 mmol/L (20-31); Glucose 111 mg/dL (74-106)
--- NOTE | 2025-10-15 07:38 | ECG ---
[facility] Test Date: 2025-10-14 Test Time: 07:09:57 Pat Name: FADY NG Department: [facility] ED Patient ID: [facility]-[id number] Room: 0291T B Gender: F Enrober Tender: : 1940 Requested By: MANUELA BISWAS Order Number: [id number] Reading MD: Sean Garcia Measurements Intervals [place] Rate: 76 P: 31 SC: 160 QRS: -15 QRSD: 98 T: 54 QT: 400 QTc: 450 Interpretive Statements Sinus rhythm Borderline left axis deviation Low voltage, precordial leads Electronically Signed On 10-18-2025 17:23:19 PST by Sean Garcia Please click the below link to view image of tracing.
[2025-10-15] MEDS: REGADENOSON 0.4 MG/5 ML SYRG IV ONE ×2 (08:35→08:49)
[2025-10-15] MEDS ORDERED: ENOXAPARIN SOD 40 MG/0.4 ML SYRINGE SC SCH (10:00)
[2025-10-15] MEDS ORDERED: DOCUSATE SOD 100 MG CAP PO SCH (10:00)
[2025-10-15] MEDS: ENOXAPARIN SOD 40 MG/0.4 ML SYRINGE SC SCH (10:00)
[2025-10-15] MEDS: DOCUSATE SOD 100 MG CAP PO SCH (10:00)
--- NOTE | 2025-10-15 16:53 | DVHPNRES ---
Progress Note Date Seen: Oct 15, 2025 Resident Creating Document: ZEFERINO HIDALGO RESIDENT Medical Necessity Reason Pt with a Central, PICC or Fol: No Subjective Review of Systems This 85-year-old female with past medical history of HTN, dm 2, HLD, depression, CHF, disc disease, arthritis, cholecystectomy, hysterectomy present to ER with a complaint of chest pain , weakness and near-syncope. Daughter Ben in bedside with patient reported patient lives with her another daughter Jennifer. Patient woke up around 5:00 a.m. day of admission and called her daughter to call 911 because of chest pain which is 7/10 intensity, pressure-like sensation, localized, radiates to back, no aggravating or relieving factor. Current symptoms associated with weakness, SOB, pale and something was stuck in her throat. Patient having exertional shortness of breath for few weeks. History of DVT 2 years ago noted in anticoagulation Patient seen by Cardiology 4 year back and no stress test before. Patient use Rollator walker for ambulation at home. During examination in bedside, patient denies any fever, SOB, chest pain, abdominal pain, dysuria or any focal weakness. Past medical history: As above Past surgical history: As above Family history: Mother-hypertension, brother-stroke Personal history: Denies any illicit drug or EtOH use Allergy: Allergy PCP: Dr. De La Cruz Home medication: Simvastatin, lisinopril, metformin, simvastatin. Objective vital signs Vital Sign Date Time Temp Pulse Resp B/P (MAP) Pulse Ox O2 Delivery O2 Flow Rate FiO2 10/15/25 12:40 98.3 84 16 127/76 (93) 96 98.3 10/15/25 07:30 Room Air* 0 21 Total Intake and Output 10/14/25 10/14/25 10/15/25 15:00 23:00 07:00 Intake Total 0 ml Balance 0 ml medications Current Medications Medications Dose Ordered Sig/Suzan Route Start Time Stop Time Status Last Admin Dose Admin Nitroglycerin 0.4 mg Q5MINP PRN SL 10/14/25 11:15 UNV Aspirin 81 mg DAILY PO 10/15/25 10:00 Atorvastatin Calcium 40 mg HS PO 10/14/25 22:00 10/14/25 21:36 40 MG Acetaminophen 325 mg Q4HP PRN PO 10/14/25 21:30 10/14/25 22:16 325 MG Docusate Sodium 100 mg DAILY PO 10/15/25 10:00 Ondansetron HCl 4 mg Q4HP PRN IV 10/14/25 21:30 Enoxaparin Sodium 40 mg DAILY SC 10/15/25 10:00 Furosemide 20 mg BIDD IV 10/15/25 06:00 Examination General Appearance: Alert, Oriented X3, Cooperative, No acute distress HEENT: Atraumatic, PERRLA, EOMI, Mucous membr. moist/pink Respiratory: Clear to auscultation, Normal air movement Cardiovascular: Regular rate, Normal S1, Normal S2, No murmurs Abdominal: Normal bowel sounds, Soft, No tenderness, No hepatospenomegaly, No masses Extremities: No clubbing, No cyanosis, No edema, Normal pulses, No tenderness/swelling Skin: No rashes, No breakdown, No significant lesion Neuro: Gait instability, Normal speech, Strength at 5/5 X4 ext, Normal tone, Sensation intact, Cranial nerves 3-12 NL Psych/Mental Status: Mental status NL, Mood NL laboratory and microbiology Laboratory Tests 10/15/25 05:00 Test 10/15/25 05:00 Range/Units Serum Glucose 111 H 74-106 mg/dL Problem List/Assessment/Plan Problem List/Assessment/Plan Acute chest pain likely stable angina Chest pain rule out ACS EKG sinus rhythm, no ST changes, QTC 450 CXR showed pulmonary vascular congestion Echocardiogram 10/14/2025: LVEF 50%, moderately dilated right RV and right RA. Aortic sclerosis, no effusion. Cardiology consulted and stress test report pending Aspirin Atorvastatin Presyncope CTA showed no evidence of acute intracranial abnormality. CT angio chest showed no pulmonary embolism, multifocal ground-glass densities throughout both lung. CT neck no evidence of cervical mass, lesion or fluid collection. Type 2 diabetes mellitus Hemoglobin A1c 5.9 Insulin sliding scale Monitor blood sugar Home medication metformin MADIE due to vasomotor nephropathy Avoid nephrotoxic drugs BMP Hypertensive heart disease acute versus chronic likely systolic/diastolic heart failure CXR showed pulmonary vascular congestion Home medication lisinopril Furosemide Leukocytosis Likely stress-related WBC 13.6>5.9 CBC Mixed hyperlipidemia Atorvastatin Lipid profile Low-fat diet Likely major depression disorder Paroxetine-home medication Vitamin-D deficiency Vitamin-D level 26.7 Vitamin D 81934 p.o. Q weekly Status post cholecystectomy Status post hysterectomy Diet cardiac GI prophylaxis: DVT prophylaxis: Enoxaparin Goals of care discussion. More than 23 minute spent with patient and daughters(Jennifer and Rossi) on bedside. Case discussed with Dr. Ross. Plan discussed with: Patient, Daughter (Jennifer Richey), Other My Orders My Orders Orders - ZEFERINO HIDALGO Procedure Category Date Status Time Cardiac DIET 10/15/25 Transmitted Diet-2gna,Lofat,Lochol Lunch Visit Coding STANDARD RES Billing Provider: KARLY ROSS MD Date of Service if different f: Oct 15, 2025 Common Visit Codes: [id number] INP/OBS CARE(HIGH) ZEFERINO HIDALGO Oct 15, 2025 16:53 KARLY ROSS MD Oct 17, 2025 14:35
[2025-10-15] MEDS: ERGOCALCIFEROL 50,000 UNIT(1.25MG) CAP PO SCH (17:15)
--- NOTE | 2025-10-15 17:54 | DVHSR ---
APPROVED REPORT Exam: Nuclear Stress Test Indication: CAD BMI: 0 Stress Test Details Stress Test: Pharmacologic stress testing performed using 0.4 mg of regadenoson per 5 mL given IV over 10 seconds. HR Resting HR: 81 bpm Max Heart Rate (APMHR): 135.592120 bpm Max HR Achieved: 101 bpm Target HR (85% APMHR): 114.584690 bpm % of APMHR: 74.81 Recovery HR: 90 bpm BP Resting BP: 121/62 mmHg Recovery BP: 111/46 mmHg ECG Resting ECG: Sinus Rhythm Clinical Reason for Termination: Completed protocol Nurse Comments Recieved pt. from [employer]. A/Ox4 on RA. Connected to monitoring manager, VS stable. PIV flushes well. Reviewed POC. Pt. verbalized understanding of procedure including risks and side effects, agrees for stress testing. Lexiscan stress test performed per protocol. Buzzvil administered Cardiolite. Pt. tolerated well. Pt. stable, no change on exam. VS returned to baseline. Transferred to [employer] via wheelchair w/ tech. Stress ECG Conclusion lvef 65% normal perfusion no severe ischemia noted NM EXAM: Myocardial Perfusion REST/STRESS Imaging Protocol: Rest Tc-99m/Stress Tc-99m 1 day Resting Data Rest SPECT myocardial perfusion imaging was performed in supine position 60 minutes following the intravenous injection of 9.1 mCi of Tc-99m Sestamibi. Time of rest injection: 07:38 Date: 10/15/2025 Time of rest imagin:38 Date: 10/15/2025 Administration Route: IV Administration Site: Right Arm Pharmacologic Stress Pharmacologic stress test was performed by injecting Regadenoson 0.4 mg IV push followed by the intravenous injection of 32.1 mCi of Tc-99m Sestamibi. Time of stress injection: 08:55 Date: 10/15/2025 Time of stress imagin:55 Date: 10/15/2025 Administration Route: IV Administration Site: Right Arm Gated Stress SPECT was performed 60 minutes after stress injection. The images were gated to evaluate regional wall motion and calculate left ventricular ejection fraction. Stress only was performed in the Supine position. Nuclear Conclusion Nuclear Findings: negative for ischemia lvef 65% normal perfusion no severe ischemia noted
--- NOTE | 2025-10-15 23:58 | DVHPN2 ---
Progress Note - Dictate Date Seen: Oct 15, 2025 Medical Necessity Reason Pt with a Central, PICC or Fol: No Subjective Patient was seen and evaluated in follow up. Patient is c/o intermittent generalized pain. CBC is unremarkable. HGB A1c 5.9. BS in the 160s. CT neck showed no evidence of cervical mass lesion, pathologically enlarged lymph nodes or fluid collection. Cardiolite stress test is negative for ischemia, LV EF of 65%. Echocardiogram shows LV EF of 55%. Telemetry reviewed. vital signs Vital Sign Date Time Temp Pulse Resp B/P (MAP) Pulse Ox O2 Delivery O2 Flow Rate FiO2 10/15/25 21:00 98.0 80 16 128/83 (98) 96 98.0 10/15/25 20:00 Room Air* 0 21 Total Intake and Output 10/14/25 10/14/25 10/15/25 15:00 23:00 07:00 Intake Total 0 ml Balance 0 ml medications Current Medications Medications Dose Ordered Sig/Suzan Route Start Time Stop Time Status Last Admin Dose Admin Nitroglycerin 0.4 mg Q5MINP PRN SL 10/14/25 11:15 UNV Aspirin 81 mg DAILY PO 10/15/25 10:00 Atorvastatin Calcium 40 mg HS PO 10/14/25 22:00 10/15/25 22:16 40 MG Acetaminophen 325 mg Q4HP PRN PO 10/14/25 21:30 10/15/25 20:35 325 MG Docusate Sodium 100 mg DAILY PO 10/15/25 10:00 Ondansetron HCl 4 mg Q4HP PRN IV 10/14/25 21:30 Enoxaparin Sodium 40 mg DAILY SC 10/15/25 10:00 Furosemide 20 mg BIDD IV 10/15/25 06:00 10/15/25 16:54 20 MG Ergocalciferol 50,000 unit Q7D PO 10/15/25 17:15 10/15/25 17:15 50,000 UNIT objective GENERAL: Alert and oriented x 3. No acute distress. EYES: PERRL, EOMI. Anicteric. HENT: Moist mucous membranes. LUNGS: Clear to auscultation bilaterally. CARDIOVASCULAR: Regular rate and rhythm. ABDOMEN: Soft, nontender and nondistended. EXTREMITIES: No edema. NEUROLOGIC: No focal neurological deficits. SKIN: Warm, dry. laboratory and microbiology Laboratory Tests 10/15/25 05:00 Test 10/15/25 05:00 Range/Units Serum Glucose 111 H 74-106 mg/dL Problem List Acute chest pain. Acute on chronic congestive heart failure exacerbation. Dyspnea. Near syncope. Generalized weakness. Acute Leukocytosis. Acute Globus sensation / throat discomfort. Diabetes mellitus. Hypertension. Hyperlipidemia. Depression. Status post cholecystectomy. Status post hysterectomy. Assessment/Plan Continued all current supportive medical care. Aspirin, Lipitor. DVT prophylactics. Diuretics with Lasix. Additional plan as per the hospital course. Plan discussed with: Patient CARA MENCHACA MD Oct 15, 2025 23:58
[2025-10-16 05:00] VITALS: BP 132/70; PULSE 70; RESP 18; TEMP 98; O2SAT 96
[2025-10-16 07:28] LABS: Hematocrit 41.2 % (36.0-46.0); Hemoglobin 14.0 g/dL (12.2-16.2); Mean Corpuscular Hemoglobin 31.1 pg (28.0-32.0); Mean Corpuscular Volume 91.8 fL (80.0-100.0); Nucleated Red Blood Cells % 0.0 %
[2025-10-16 07:42] LABS: Calcium 9.7 mg/dL (8.7-10.4); Chloride 100 mmol/L (98-107); Potassium 3.7 mmol/L (3.5-5.1); Sodium 141 mmol/L (136-145)
[2025-10-16 07:43] LABS: Anion Gap 11 (5-15); Carbon Dioxide 30 mmol/L (20-31)
[2025-10-16 07:49] LABS: BUN/Creatinine Ratio 10.6 (10.0-20.0); Blood Urea Nitrogen 11 mg/dL (9-23); Glucose 141 mg/dL (74-106)
[2025-10-16 08:00] VITALS: PULSE 68
[2025-10-16 09:00] VITALS: BP 119/86; PULSE 84; RESP 20; TEMP 98.1; O2SAT 96
--- NOTE | 2025-10-16 10:48 | CONS ---
Pharmacy Clinical Information: From Heart Failure Fallout Report on CQM Application, Renee Lucas is a 85-year-old female with PMH of depression, hypertension, diabetes mellitus, hyperlipidemia, and congestive heart failure, status post cholecystectomy and hysterectomy. Echo shows LV EF of 55% => HFpEF Based on current AHA/ACC/HFSA guidelines, initiation of an SGLT2 inhibitor such as empagliflozin or dapagliflozin (10 mg daily) is recommended for patients with HFpEF to reduce the risk of cardiovascular and heart failure hospitalization. Therapy should be started in clinically stable patients with adequate renal function (eGFR ?2025 mL/min/1.73 m) and no contraindications, with monitoring for volume status, renal function, and potential adverse effects [facility] Oct 16, 2025 10:48
[2025-10-16] MEDS ORDERED: FURO20TA3 PO (15:46)
[2025-10-16] MEDS ORDERED: ASPI81CH59 PO (15:46)
[2025-10-16] MEDS ORDERED: ATOR20TA50 PO (15:46)
[2025-10-16] MEDS ORDERED: CHOL20007 PO (15:46)
[2025-10-16] MEDS ORDERED: DOXY-286 PO (15:46)
[2025-10-16 15:59] VITALS: BP 119/86; PULSE 84; RESP 20; TEMP 97.9; O2SAT 96
[2025-10-16 17:00] VITALS: BP 109/80; PULSE 103; RESP 20; TEMP 98.4; O2SAT 97
--- NOTE | 2025-10-16 17:30 | DVHDSRES ---
Discharge Summary Date of Admission Resident Creating Document: ZEFERINO HIDALGO RESIDENT Oct 14, 2025 at 11:07 Date of Discharge: Oct 16, 2025 Labs/Diagnostic Data: Laboratory Results Test 10/16/25 05:42 10/15/25 09:23 10/15/25 05:00 10/14/25 11:50 White Blood Count 6.0 10^3/uL (4.4-10.8) Red Blood Count 4.49 10^6/uL (4.0-5.20) Hemoglobin 14.0 g/dL (12.2-16.2) Hematocrit 41.2 % (36.0-46.0) Mean Corpuscular Volume 91.8 fL (80.0-100.0) Mean Corpuscular Hemoglobin 31.1 pg (28.0-32.0) Mean Corpuscular Hemoglobin Concent 33.9 g/dL (32.0-36.0) Red Cell Distribution Width 13.1 % (11.8-14.3) Platelet Count 264 10^3/uL (140-450) Mean Platelet Volume 8.1 fL (6.9-10.8) Neutrophils (%) (Auto) 48.3 % (37.0-80.0) Lymphocytes (%) (Auto) 36.8 % (10.0-50.0) Monocytes (%) (Auto) 10.5 % (0.0-12.0) Eosinophils (%) (Auto) 3.9 % (0.0-7.0) Basophils (%) (Auto) 0.5 % (0.0-2.0) Neutrophils # (Auto) 2.9 10 ^3/uL (1.6-8.6) Lymphocytes # (Auto) 2.2 10 ^3/uL (0.4-5.4) Monocytes # (Auto) 0.6 10 ^3/uL (0-1.3) Eosinophils # (Auto) 0.2 10 ^3/uL (0-0.8) Basophils # (Auto) 0 10 ^3/uL (0-0.2) Nucleated Red Blood Cells 0.0 % Sodium Level 141 mmol/L (136-145) Potassium Level 3.7 mmol/L (3.5-5.1) Chloride Level 100 mmol/L (98-107) Carbon Dioxide Level 30 mmol/L (20-31) Anion Gap 11 (5-15) Blood Urea Nitrogen 11 mg/dL (9-23) Creatinine 1.04 mg/dL (0.550-1.02) Glomerular Filtration Rate Calc 53 mL/min (>90) BUN/Creatinine Ratio 10.6 (10.0-20.0) Serum Glucose 141 mg/dL (74-106) Calcium Level 9.7 mg/dL (8.7-10.4) POC Glucose 167 mg/dl (70-106) Hemoglobin A1c 5.9 % A1C (<5.7) Total Bilirubin 0.5 mg/dL (0.2-1.0) Aspartate Amino Transferase (AST) 19 U/L (13-40) Alanine Aminotransferase (ALT) 10 U/L (7-40) Alkaline Phosphatase 62 U/L (46-116) Total Protein 6.7 g/dL (5.7-8.2) Albumin 4.3 g/dL (3.2-4.8) Vitamin B12 Level 2674 pg/mL (211-911) Vitamin D 25-Hydroxy 26.7 ng/mL (30.0-100) Thyroid Stimulating Hormone (TSH) 0.68 uIU/mL (0.55-4.78) Urine Color Light-yellow (Yellow) Urine Clarity Clear (Clear) Urine pH 5.0 (5.0-9.0) Urine Specific Tyro 1.016 (1.001-1.035) Urine Protein Negative (Negative) Urine Ketones Negative (Negative) Urine Blood Negative /uL (Negative) Urine Nitrite Negative (Negative) Urine Bilirubin Negative (Negative) Urine Urobilinogen Normal mg/dL (Negative) Urine Leukocyte Esterase Trace /uL (Negative) Urine RBC 1 /hpf (0 - 4) Urine Microscopic WBC 1 /HPF (0-5) Urine Squamous Epithelial Cells Few /hpf (<5) Urine Bacteria Few /hpf (None Seen) Urine Glucose Normal mg/dL (Normal) Test 10/14/25 11:37 Troponin I High Sensitivity < 3 ng/L (</=34) Other Laboratory Tests 10/16/25 05:42 Brief Hx & Hospital Course: This 85-year-old female with past medical history of HTN, dm 2, HLD, depression, CHF, disc disease, arthritis, cholecystectomy, hysterectomy present to ER with a complaint of chest pain , weakness and near-syncope. Daughter Ben in bedside with patient reported patient lives with her another daughter Jennifer. Patient woke up around 5:00 a.m. day of admission and called her daughter to call 911 because of chest pain which is 7/10 intensity, pressure-like sensation, localized, radiates to back, no aggravating or relieving factor. Current symptoms associated with weakness, SOB, pale and something was stuck in her throat. Patient having exertional shortness of breath for few weeks. History of DVT 2 years ago noted in anticoagulation Patient seen by Cardiology 4 year back and no stress test before. Patient use Rollator walker for ambulation at home. During examination in bedside, patient denies any fever, SOB, chest pain, abdominal pain, dysuria or any focal weakness. Past medical history: As above Past surgical history: As above Family history: Mother-hypertension, brother-stroke Personal history: Denies any illicit drug or EtOH use Allergy: Allergy PCP: Dr. De La [facility] course: Patient admitted due to chest pain ruled out ACS. EKG sinus rhythm, no ST changes, QTC 450. CXR showed pulmonary vascular congestion. Echocardiogram 10/14/2025: LVEF 50%, moderately dilated right RV and right RA. Aortic sclerosis, no effusion. Troponin x3 negative.CTA showed no evidence of acute intracranial abnormality. CT angio chest showed no pulmonary embolism, multifocal ground-glass densities throughout both lung. CT neck no evidence of cervical mass, lesion or fluid collection. Cardiology consulted and scheduled for stress test on 10/15/2025 which showed negative for ischemia, LVEF 65%, no pericardial effusion. During inpatient stay patient treated both acute and chronic medical condition, got maximum benefit. Leukocytosis resolved. On examination on 10/16/2025, denies any fever, SOB, chest pain, abdominal pain, dysuria, headache, cough, any focal weakness. Patient advised to resume her home medication and medicine sent to pharmacy. Continue oral antibiotic doxycycline for 5 days. Patient is hemodynamically stable for discharge. Patient has received maximum benefit from inpatient treatment. Time was given to answer patient's questions and concerns in layman terms and explained by RN. Patient verbalized understanding and agreed with treatment and follow-up. Patient was recommended to return to ER if he experiences any worsening symptoms not limited to current symptoms. Follow-up with PCP and outpatient continuity clinic [facility] morning within week after discharge. Follow-up with outpatient cardiology clinic 4-6 weeks after discharge. Physical examination: Constitutional: No: Fever, Chills, Sweats, Weakness, Malaise, Other Eyes: No: Pain, Vision change, Conjunctivae inflammation, Eyelid inflammation, Other, Redness ENT: No: Ear pain, Ear discharge, Nose pain, Nose discharge, Nose congestion, Mouth pain, Mouth swelling, Throat pain, Throat swelling, Other Respiratory: Shortness of breath; No: Cough, Dry, SOB with excertion, Wheezing, Hemoptysis, Pleuritic Pain, Sputum, Wheezing, Other Cardiovascular: No: Chest Pain, Palpitations, Orthopnea, Paroxysmal Noc. Dyspnea, Edema, Lt Headedness, Other Gastrointestinal: No: Nausea, Vomiting, Abdominal Pain, Diarrhea, Constipation, Melena, Hematochezia, Other Genitourinary: No Dysuria, No Frequency, No Incontinence, No Hematuria, No Retention, No Other Musculoskeletal: No: other, neck pain, shoulder pain, arm pain, back pain, hand pain, leg pain, foot pain Skin: No: Rash, Lesions, Jaundice, Bruising, Other Neurological: No: Weakness, Numbness, Incoordination, Change in speech, Confusion, Seizures, Other > 23 minute spent with patient. Discussed with patient, nurse, Dr. Ross. Operations or Procedures ORDERING PHYSICIAN: MANUELA BISWAS MD PROCEDURE(s): CXRP - CHEST PORTABLE REASON: chest pain ORDER NUMBER(s): [id number], ACCESSION NUMBER(s): [id number] XY CHEST PORTABLE, HISTORY: chest pain COMPARISON: None None TECHNICAL DATA: 1 view of the chest was obtained. FINDINGS: Lines and tubes: None Cardiomediastinal silhouette: normal Pulmonary vasculature: Prominent Lung expansion: normal Lung airspace: normal Lung interstitium: normal Pleura: normal Pneumothorax: no Bones: Unremarkable Other: no IMPRESSION: Pulmonary vascular congestion. ATED BY: ОЛЕГ GOFF MD DICTATED DATE/TIME: 10/14/25 0878 ORDERING PHYSICIAN: MANUELA BISWAS MD PROCEDURE(s): HWOCT - HEAD WITHOUT CONTRAST REASON: syncope ORDER NUMBER(s): [id number], ACCESSION NUMBER(s): [id number] CT HEAD WITHOUT CONTRAST INDICATION: syncope COMPARISON: None TECHNIQUE: CT of the head without intravenous contrast. RADIATION DOSE: CTDIvol: 51.97 mGy, DLP: 1024.32 mGy*cm FINDINGS: There is no evidence of acute intracranial hemorrhage, extra-axial collection, mass effect, midline shift, herniation or hydrocephalus. The ventricles, sulci and cisterns are age appropriate. The doshi-white differentiation is intact. The visualized paranasal sinuses and mastoid air cells are clear. The surrounding soft tissues and osseous structures are unremarkable. IMPRESSION: 1. No evidence of acute intracranial hemorrhage, mass effect or hydrocephalus. ATED BY: KESHAWN BURDICK MD DICTATED DATE/TIME: 10/14/25 1055 ORDERING PHYSICIAN: PARMINDER APODACA DNP PROCEDURE(s): CTACH - CT ANGIO CHEST CONTRAST REASON: eval for pulmonary embolism and aaa ORDER NUMBER(s): [id number], ACCESSION NUMBER(s): [id number] CTA Chest with intravenous contrast INDICATION: eval for pulmonary embolism and aaa COMPARISON: XY CHEST PORTABLE on DOS: 10/14/25 TECHNIQUE: Multidetector spiral CTA of the chest was performed of the chest with intravenous contrast. PULMONARY ANGIOGRAPHY PROTOCOL was utilized using a bolus- tracking technique centered on the main pulmonary artery. Axial, coronal and sagittal multiplanar and MIP reformats were performed. Radiation Dose : 1. Chest: CTDI volume is 23.4 mGy. Dose-length product is 1433.84 mGy*cm The dose indicators for CT are the volume Computed Tomography (CT) Dose Index (CTDIvol) and the Dose Length Product (DLP), and are measured in units of mGy and mGy-cm, respectively. These indicators are not patient dose, but values generated from the CT scanner acquisition factors. The report includes radiation exposure data for exposures received during this examination. FINDINGS: Pulmonary artery: No pulmonary embolism Lower neck: Normal thyroid. Lungs: Multifocal ground-glass densities throughout both lungs may reflect multifocal pneumonia. Heart/Vascular Structures: Normal heart size. No pericardial effusion. Lymph Nodes: No adenopathy Pleura: No pleural effusion or significant pneumothorax. Musculoskeletal: No acute osseous abnormality. Soft tissues: Normal. Upper abdomen: Limited portions of the upper abdomen are unremarkable. IMPRESSION: 1. No pulmonary embolism. 2. Multifocal ground-glass densities throughout both lungs may reflect multifocal pneumonia. ATED BY: KESHAWN BURDICK MD DICTATED DATE/TIME: 10/14/25 1326 ORDERING PHYSICIAN: PARMINDER APODACA DNP PROCEDURE(s): NKICT - NECK WITHOUT CONTRAST REASON: eval for acute dsyphaghia ORDER NUMBER(s): [id number], ACCESSION NUMBER(s): [id number] EXAM: CT NECK WITHOUT CONTRAST INDICATION: eval for acute dsyphaghia Exam Date: 10/14/2025 12:38 PM COMPARISON: None TECHNIQUE: CT of the neck without intravenous contrast. RADIATION DOSE: CTDIvol: 23 mGy, DLP: 1430 mGy*cm CONTRAST: None given FINDINGS: There is no evidence of cervical mass lesion, pathologically enlarged lymph nodes or fluid collection. The fat planes of the neck appear intact. The airway and larynx are unremarkable. The parotid, submandibular and thyroid glands are unremarkable. The vascular structures of the neck appear patent. The visualized lung apices are clear. The limited visualized portions of the brain are unremarkable. The osseous structures are unremarkable. IMPRESSION: 1. No evidence of cervical mass lesion, pathologically enlarged lymph nodes or fluid collection. ATED BY: KESHAWN BURDICK MD DICTATED DATE/TIME: 10/14/25 1444 ORDERING PHYSICIAN: CHI HERNANDEZ WILDLIFE CONTROL AGENT PROCEDURE(s): CWMM - CARDIOLITE MULTIPLE REASON: rule out cad ORDER NUMBER(s): [id number], ACCESSION NUMBER(s): [id number] APPROVED REPORT Exam: Nuclear Stress Test Indication: CAD BMI: 0 Stress Test Details Stress Test: Pharmacologic stress testing performed using 0.4 mg of regadenoson per 5 mL given IV over 10 seconds. HR Resting HR: 81 bpm Max Heart Rate (APMHR): 135.608113 bpm Max HR Achieved: 101 bpm Target HR (85% APMHR): 114.822636 bpm % of APMHR: 74.81 Recovery HR: 90 bpm BP Resting BP: 121/62 mmHg Recovery BP: 111/46 mmHg ECG Resting ECG: Sinus Rhythm Clinical Reason for Termination: Completed protocol Nurse Comments Recieved pt. from [facility]. A/Ox4 on RA. Connected to customs compliance director, VS stable. PIV flushes well. Reviewed POC. Pt. verbalized understanding of procedure including risks and side effects, agrees for stress testing. Lexiscan stress test performed per protocol. [facility] tech administered Cardiolite. Pt. tolerated well. Pt. stable, no change on exam. VS returned to baseline. Transferred to [facility] via wheelchair w/ tech. Stress ECG Conclusion lvef 65% normal perfusion no severe ischemia noted NM EXAM: Myocardial Perfusion REST/STRESS Imaging Protocol: Rest Tc-99m/Stress Tc-99m 1 day Resting Data Rest SPECT myocardial perfusion imaging was performed in supine position 60 minutes following the intravenous injection of 9.1 mCi of Tc-99m Sestamibi. Time of rest injection: 07:38 Date: 10/15/2025 Time of rest imagin:38 Date: 10/15/2025 Administration Route: IV Administration Site: Right Arm Pharmacologic Stress Pharmacologic stress test was performed by injecting Regadenoson 0.4 mg IV push followed by the intravenous injection of 32.1 mCi of Tc-99m Sestamibi. Time of stress injection: 08:55 Date: 10/15/2025 Time of stress imagin:55 Date: 10/15/2025 Administration Route: IV Administration Site: Right Arm Gated Stress SPECT was performed 60 minutes after stress injection. The images were gated to evaluate regional wall motion and calculate left ventricular ejection fraction. Stress only was performed in the Supine position. Nuclear Conclusion Nuclear Findings: negative for ischemia lvef 65% normal perfusion no severe ischemia noted SIGNED BY: MARIA TERESA KIDD MD SIGNED DATE/TIME: 10/15/25 0585 Condition at Discharge: Stable Final Diagnosis/Problems List Chest pain ruled out ACS. Acute chest pain likely stable angina Type 2 diabetes mellitus Presyncope MADIE due to vasomotor nephropathy Hypertensive heart disease acute versus chronic likely systolic/diastolic heart failure Mixed hyperlipidemia Leukocytosis likely stress related Possible major depressive disorder Vitamin-D deficiency Status post cholecystectomy Status post hysterectomy Discharge Disposition: Home Discharge Instruct/Medications Diet: Consistent carbohydrate Diet comment: PCP Outpatient continuity clinic Wednesday morning Activity: No Restrictions, As Tolerated Scheduled Aspirin (Aspirin Low Dose), 1 TAB PO DAILY Atorvastatin Calcium (Atorvastatin Calcium), 40 MG PO HS Cholecalciferol (Vitamin D3), 1 TAB PO DAILY Doxycycline Hyclate (Doxycycline Hyclate), 1 TAB PO BID Furosemide (Furosemide), 1 TAB PO DAILY Lisinopril (Lisinopril), 1 TAB PO DAILY, (Reported) Miscellaneous Medications Levothyroxine Sodium (Levothyroxine Sodium), 25 MCG PO, (Reported) Metformin HCl (Metformin Hydrochloride), 500 MG PO, (Reported) Discontinued Medications Simvastatin (Simvastatin), 1 TAB PO QPM, (Reported) Discharge Statement: "Patient was advised to return to the ER or call 911 if any headaches, dizziness, shortness of breath, chest pain, abdominal pain, bleeding, fevers, or worsening of medical condition. Patient was counseled about treatment plan, medications, possible side effects, patientverbalized understanding. All questions were answered to the best of my ability. This discharge took greater then 30 minutes in planning, reviewing documentation, counseling the patient, and discussing with other team members." ASSESSMENT ASSESSMENT Assessment Chest pain ruled out ACS. Visit Coding STANDARD RES Billing Provider: KARLY ROSS MD Date of Service if different f: Oct 16, 2025 Common Visit Codes: 09667-MRY/OBS DISCH DAY >30min ZEFERINO HIDALGO RESIDENT Oct 16, 2025 17:30 KARLY ROSS MD Oct 17, 2025 14:48
--- NOTE | 2025-10-17 00:12 | DVHPN2 ---
Progress Note - Dictate Date Seen: Oct 16, 2025 Medical Necessity Reason Pt with a Central, PICC or Fol: No Subjective Patient was seen and evaluated in follow up. Patient has no new complaints at this time. Patient denies any cardiac symptoms. Patient is cardiac stable for discharge. Telemetry reviewed. vital signs Vital Sign Date Time Temp Pulse Resp B/P (MAP) Pulse Ox O2 Delivery O2 Flow Rate FiO2 10/16/25 09:00 98.1 84 20 119/86 (97) 96 98.1 10/16/25 08:20 Room Air* 0 21 Total Intake and Output 10/15/25 10/15/25 10/16/25 15:00 23:00 07:00 Intake Total 450 ml 440 ml Balance 450 ml 440 ml medications Current Medications Medications Dose Ordered Sig/Suzan Route Start Time Stop Time Status Last Admin Dose Admin Nitroglycerin 0.4 mg Q5MINP PRN SL 10/14/25 11:15 UNV Aspirin 81 mg DAILY PO 10/15/25 10:00 10/16/25 09:04 81 MG Atorvastatin Calcium 40 mg HS PO 10/14/25 22:00 10/15/25 22:16 40 MG Acetaminophen 325 mg Q4HP PRN PO 10/14/25 21:30 10/15/25 20:35 325 MG Docusate Sodium 100 mg DAILY PO 10/15/25 10:00 Ondansetron HCl 4 mg Q4HP PRN IV 10/14/25 21:30 Enoxaparin Sodium 40 mg DAILY SC 10/15/25 10:00 10/16/25 09:04 40 MG Furosemide 20 mg BIDD IV 10/15/25 06:00 10/16/25 05:45 20 MG Ergocalciferol 50,000 unit Q7D PO 10/15/25 17:15 10/15/25 17:15 50,000 UNIT objective GENERAL: Alert and oriented x 3. No acute distress. EYES: PERRL, EOMI. Anicteric. HENT: Moist mucous membranes. LUNGS: Clear to auscultation bilaterally. CARDIOVASCULAR: Regular rate and rhythm. ABDOMEN: Soft, nontender and nondistended. EXTREMITIES: No edema. NEUROLOGIC: No focal neurological deficits. SKIN: Warm, dry. laboratory and microbiology Laboratory Tests 10/16/25 05:42 Test 10/16/25 05:42 Range/Units Serum Glucose 141 H 74-106 mg/dL Problem List Acute chest pain. Acute on chronic congestive heart failure exacerbation. Dyspnea. Near syncope. Generalized weakness. Acute Leukocytosis. Acute Globus sensation / throat discomfort. Diabetes mellitus. Hypertension. Hyperlipidemia. Depression. Status post cholecystectomy. Status post hysterectomy. Assessment/Plan Continued all current supportive medical care. Aspirin, Lipitor. DVT prophylactics. Diuretics with Lasix. Additional plan as per the hospital course. Plan discussed with: Patient CARA MENCHACA MD Oct 16, 2025 14:33
== END 2025-10-16 18:35 | disposition home or self-care (01) | DRG 311 ==
LOC: EDUNIT# 07:02 → EDBD 07:02 → ER 07:02 → OVERFLOW 11:07 → TELE-WESTW 20:58
PROVIDERS: ADMIT Student in an Organized Health Care Education/Training Program; ATTEND Student in an Organized Health Care Education/Training Program
DX: I20.89 Other forms of angina pectoris (principal); N17.0 Acute kidney failure with tubular necrosis; I50.42 Chronic combined systolic (congestive) and diastolic (congestive) heart failure; E11.9 Type 2 diabetes mellitus without complications; D72.829 Elevated white blood cell count, unspecified; E78.2 Mixed hyperlipidemia; E55.9 Vitamin D deficiency, unspecified; F32.9 Major depressive disorder, single episode, unspecified; I11.0 Hypertensive heart disease with heart failure; E78.5 Hyperlipidemia, unspecified; Z90.710 Acquired absence of both cervix and uterus; Z90.49 Acquired absence of other specified parts of digestive tract; Z99.3 Dependence on wheelchair
CPT/HCPCS: 36415; 70450; 70490; 71045; 71275; 78452; 80048; 80053; 81001; 82306; 82607; 82962; 83036; 84443; 84484; 85025; 93005; 93017; 93306; G0378